=== PATIENT | female | born 1955 | race African-American/Black ===

== ENCOUNTER → 2018-11-04 | Outpatient (CLI) | payer BC ==
--- NOTE | 2018-11-04 16:37 | RAD ---
Left tibia and fibula, 2 views, 11/04/2018: HISTORY: Pain No fracture or destructive bony lesion is seen. The soft tissues are unremarkable. IMPRESSION: No significant abnormality is detected. Electronically signed by: Codey Moulton MD (11/04/2018 4:35 PM) [facility]
== END | disposition home or self-care (01) ==
LOC: PMG 15:21
PROVIDERS: ATTEND Registered Nurse
DX: M79.605 Pain in left leg (principal); Z87.81 Personal history of (healed) traumatic fracture
CPT/HCPCS: 73590

== ENCOUNTER → 2018-11-12 | Outpatient (CLI) | payer BC ==
--- NOTE | 2018-11-12 10:02 | RAD ---
Thyroid ultrasound, 11/12/2018: HISTORY: Neck fullness The right lobe of the gland measures 3.6 x 1.2 x 1.1 cm, while the left lobe of the gland measures 6.3 x 1.9 x 2.2 cm. Several nodules are present in the left lobe of the gland. The largest of these lies posteriorly and measures 2.4 x 1.5 x 1.1 cm. It demonstrates internal color flow compatible with a solid nodule. Its margins are smooth. It is wider than tall. No internal calcifications are seen. There are two smaller 1.1 and 1.3 cm nodules with similar sonographic characteristics present along the lateral and inferior aspects of the larger nodule in the left lobe. There is a 4 mm cystic structure in the upper pole of the left lobe of the gland compatible with a colloid cyst. No right lobe nodule is evident. IMPRESSION: Multiple nodules in the left lobe of the gland, the largest of which demonstrates mildly suspicious features by ACR TI-RADS criteria. Sonographic follow-up is suggested, although ultrasound-guided biopsy would be a reasonable alternative. Electronically signed by: Codey Moulton MD (11/12/2018 9:59 AM) [facility]
== END | disposition home or self-care (01) ==
LOC: US 07:48
PROVIDERS: ATTEND Registered Nurse
DX: E04.2 Nontoxic multinodular goiter (principal)
CPT/HCPCS: 76536